=== PATIENT | female | born 1975 | race Caucasian/White ===

== ENCOUNTER 2021-09-29 14:31 | Emergency (ER) | payer BC ==
[~2021-09-29] VITALS: Ht 167.6 cm; Wt 65.8 kg
[2021-09-29 14:46] VITALS: BP_SYST 137
--- NOTE | 2021-09-29 15:42 | NUR ---
Patient arrived to the ER herself around 1430, complaining that her hands turned green. The patient stated she speculated her hands were a sign of deoxygenation as a result of her elbow surgery that included nerve repositioning, back in 2018. The patient stated she took three Advils this morning because of the pain in her hands and the green pigmentation. A nurse scrubbed her hands with an alcohol pad and the green pigmentation began to smear off. The nurse realized the green pigmentation in the hands were a result of green paint, and the patient recollected coming into contact with green linens that were painted green last night.
--- NOTE | 2021-09-29 15:43 | NUR ---
DR HANLEY IN ROOM FOR EXAM
--- NOTE | 2021-09-29 15:54 | NUR ---
PT COMES TO ER WITH C/O "SUDDEN COLOR CHANGE IN HANDS" HNADS NOTED TO BE GREE IN COLOR, DENIES ANY PAIN. SKIN OVERALL W/D/I. PT ALSO ADMITS THAT SHE WORE A GREEN TINTED COLOR SHIRT TODAY AND THAT THAT MIGHT HAVE BEEN THE REASON. VSS. RESP EVENE AND ULABORED, ON RA @99%. VSS.
--- NOTE | 2021-09-29 16:24 | NUR ---
Patient given written and verbal discharge instructions and verbalizes understanding. ER MD discussed with patient the results and treatment provided. Patient in stable condition. ID arm band removed. Patient educated on pain management and to follow up with PMD. Pain Scale [0]. Opportunity for questions provided and answered. Medication side effect fact sheet provided.
[2021-09-29 16:25] VITALS: BP_SYST 137
== END 2021-09-29 16:25 | disposition home or self-care (01) ==
LOC: SED 14:31
DX: L81.9 Disorder of pigmentation, unspecified (principal)
CPT/HCPCS: 99281

== ENCOUNTER 2022-06-18 23:10 | Emergency (ER) | payer BC ==
[~2022-06-18] VITALS: Ht 167.6 cm; Wt 68.0 kg
[2022-06-18 23:52] VITALS: BP_SYST 139
[2022-06-19] MEDS ORDERED: LIDOCAINE 1% 10 MG/ML, 20 ML MDV INJ ONE (01:15)
[2022-06-19] MEDS ORDERED: DIPHTH,PERTUSS(ACELL),TET VAC 0.5 ML VIAL (Tdap) I.M. ONE (01:45)
[2022-06-19] MEDS ORDERED: CEPH250C PO (01:52)
== END 2022-06-19 02:01 | disposition home or self-care (01) ==
LOC: SED 23:10
DX: S61.212A Laceration without foreign body of right middle finger without damage to nail, initial encounter (principal); Z79.899 Other long term (current) drug therapy; W50.0XXA Accidental hit or strike by another person, initial encounter; Y93.89 Activity, other specified; Y92.89 Other specified places as the place of occurrence of the external cause; Y99.8 Other external cause status
CPT/HCPCS: 90715; 99283